=== PATIENT | male | born 1965 | race Caucasian/White ===

== ENCOUNTER 2016-08-19 07:51 | Day surgery (SDC) | payer BC, MEDICARE ==
[~2016-08-19 07:51] MED LIST: AMIODARONE HCL200 M1 PO; ASPIRIN81 M1 PO; AURYXIA; CALCITRIOL0.25 MC1 PO; CARDURA8 M1 PO; ELIQUIS2.5 M1 PO; ELIQUIS5 M1 PO; FISH OIL300 M1 PO; L-LYSINE500 M2 PO; METOPROLOL SUCC50 M1 PO; METOPROLOL TART25 M1 PO; MIDODRINE HCL5 M1 PO; OMEGA DHA92 MG PO; ONE DAILY COMP1 EAC1 PO; PROGRAF0.5 M1 PO; RENVELA800 M1 PO; TOPROL XL25 M1 PO; VFEND PO; VITAMIN D250000 UNI1 PO; VITAMIN D31000 UNI3 PO
== END 2016-08-19 13:00 ==
LOC: RADSP 07:51 → SHSB 07:52
PROC: 037B3ZZ Dilation of Right Radial Artery, Percutaneous Approach (ICD-10-PCS; principal; 2016-08-19)
DX: T82.858A Stenosis of other vascular prosthetic devices, implants and grafts, initial encounter (principal); N18.6 End stage renal disease; Y83.8 Other surgical procedures as the cause of abnormal reaction of the patient, or of later complication, without mention of misadventure at the time of the procedure; Z88.8 Allergy status to other drugs, medicaments and biological substances; Z98.890 Other specified postprocedural states
CPT/HCPCS: C1725; C1769; C1887; J1644; J2250; J3010; J7040; Q9967